=== PATIENT | female | born 1970 | race Caucasian/White ===

== ENCOUNTER → 2016-12-01 | Outpatient (CLI) | payer BC ==
[2016-12-01 16:47] LABS: CHLORIDE,CL 106 mmol/L (98-110); SODIUM,NA 139 mmol/L (136-146)
== END ==
LOC: MW.CHIM 15:29
PROVIDERS: ATTEND Internal Medicine
DX: R11.2 Nausea with vomiting, unspecified (principal); R19.7 Diarrhea, unspecified; N92.0 Excessive and frequent menstruation with regular cycle; R19.02 Left upper quadrant abdominal swelling, mass and lump
CPT/HCPCS: 36415; 80053; 82150; 84443; 85025; 85610; 85652; 86140

== ENCOUNTER → 2016-12-02 | Outpatient (CLI) | payer BC | LOC: MW.CHIM 08:23 | PROVIDERS: ATTEND Internal Medicine | DX: R11.2 Nausea with vomiting, unspecified (principal); R19.7 Diarrhea, unspecified; R19.02 Left upper quadrant abdominal swelling, mass and lump | CPT/HCPCS: 83630; 87046; 87324; 87328; 87329; 87338; 87899 ==

== ENCOUNTER → 2016-12-10 | Outpatient (CLI) | payer BC ==
--- NOTE | 2016-12-10 12:43 | US ---
EXAMINATION: Right upper quadrant ultrasound HISTORY: Nausea COMPARISON: None TECHNIQUE: Grayscale and color Doppler images obtained of the right upper quadrant. FINDINGS: The visualized pancreas appears normal. The liver is normal in contour with mildly increas ed generalized echotexture. No focal hepatic mass. Cholecystectomy. The common bile duct measures 3 to 4 mm. Right kidney measures 11.7 cm [id number] without evidence of hydronephrosis. No shadowing stones. IMPRESSION: 1. Minimal fatty infiltration of the liver.
--- NOTE | 2016-12-10 13:44 | US ---
EXAMINATION: Transvaginal and transabdominal pelvic ultrasound HISTORY: Excessive and frequent menstruation COMPARISON: None TECHNIQUE: Grayscale, color Doppler, and spectral Doppler images obtained transvaginally and transab dominally. FINDINGS: The uterus is normal in size and contour with a heterogeneous overall echotexture. Endomet rial stripe thickness is not well characterized. Small the both and cysts are noted. No significant free pelvic fluid. There is a small cyst 1 cm noted within the left adnexal region, however the adjacent overlying tiss ues not well characterized. The right ovary is noted transabdominally and appears normal in contour and echogenicity demonstrating normal color and spectral Doppler flow. IMPRESSION: 1. Heterogeneous uterine echotexture, possibly containing underlying fibroids. 2. A small left adnexal cyst is noted however the left ovary is not well characterized.
--- NOTE | 2016-12-22 14:06 | MY ---
EXAMINATION: Bilateral digital mammography utilizing CAD. HISTORY: Screening exam. Comparison is made to previous studies dated 01/29/2015, 01/19/2014. FINDINGS: Bilateral scattered fibroglandular densities. No suspicious calcifications, masses or ar chitectural distortions. No pathologic appearing lymph nodes, no abnormal skin thickening or nippl e inversion. CAD highlighted regions appear normal at this time. IMPRESSION: BI-RADS category I - negative mammogram. Continued screening according to ACR-ACS gu idelines suggested. THE FALSE-NEGATIVE RATE OF MAMMOGRAM IS APPROXIMATELY 10%. MANAGEMENT OF A PALPABLE ABNORMALITY MUST BE BASED UPON CLINICAL GROUNDS. SENSITIVITY FOR DETECTION OF ABNORMALITIES IN DENSE BREASTS IS LOW. NOTE: A letter will be sent to the patient regarding findings. [facility] -- MARIYA Chau [phone] - FAX [phone]
== END ==
LOC: MW.US 09:20
PROVIDERS: ATTEND Nurse Practitioner Women's Health
DX: Z12.31 Encounter for screening mammogram for malignant neoplasm of breast (principal); N92.0 Excessive and frequent menstruation with regular cycle; R11.2 Nausea with vomiting, unspecified; R19.7 Diarrhea, unspecified; E27.8 Other specified disorders of adrenal gland; K76.0 Fatty (change of) liver, not elsewhere classified
CPT/HCPCS: 76705; 76830; G0202

== ENCOUNTER 2020-09-05 10:31 | Day surgery (SDC) | payer BC ==
[~2020-09-05 10:31] MED LIST: Lactated Ringers 1,000 ML IV SCH; Lidocaine 2% 5 ML SDV ONE; Propofol 200 MG/20 ML SDV ONE; fentaNYL 100 MCG/2 ML SDV ONE
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
--- NOTE | 2020-09-05 13:12 | PCM.OPNOTE ---
- General Post-Op/Procedure Note Date of Surgery/Procedure: 09/05/20 Operative Procedure(s): Colonoscopy with polypectomy and random biopsies Findings: Colon polyp Dictation Number [id number] Pre Op Diagnosis: frequent loose stools Post-Op Diagnosis: colon polyp Primary Surgeon: Amanuel San Pathology: colon polyp and random biopsies. Complications: None Condition: Good
--- NOTE | 2020-09-05 13:14 | PCM.POSTAN ---
POST ANESTHESIA ASSESSMENT - MENTAL STATUS Mental Status: Alert, Oriented - VITAL SIGNS Vital Signs: Last Vital Signs Temp Pulse 81 09/05/20 10:45 Resp 15 09/05/20 10:45 BP 131/76 09/05/20 10:45 Pulse Ox 95 09/05/20 10:45 - RESPIRATORY Respiratory Status: Respiratory Rate WNL, Airway Patent, O2 Saturation Stable - CARDIOVASCULAR CV Status: Pulse Rate WNL, Blood Pressure Stable - GASTROINTESTINAL GI Status: No Symptoms - POST OP HYDRATION Hydration Status: Adequate & Stable
--- NOTE | 2020-09-05 13:23 | PCM48HPAN ---
Post Anesthesia Note - EVALUATION WITHIN 48HRS OF ANESTHETIC Vital Signs in Normal Range: Yes Patient Participated in Evaluation: Yes Respiratory Function Stable: Yes Airway Patent: Yes Cardiovascular Function Stable: Yes Hydration Status Stable: Yes Pain Control Satisfactory: Yes Nausea and Vomiting Control Satisfactory: Yes Mental Status Recovered: Yes Vital Signs: Last Vital Signs Temp Pulse 66 09/05/20 13:13 Resp 9 L 09/05/20 13:13 BP 131/76 09/05/20 13:13 Pulse Ox 95 09/05/20 13:13
--- NOTE | 2020-09-05 15:13 | PCM.POSTAN ---
POST ANESTHESIA ASSESSMENT - MENTAL STATUS Mental Status: Oriented - VITAL SIGNS Vital Signs: Last Vital Signs Temp 36.1 C 09/05/20 13:20 Pulse 67 09/05/20 13:20 Resp 14 09/05/20 13:20 BP 130/88 09/05/20 13:20 Pulse Ox 93 L 09/05/20 13:20 - RESPIRATORY Respiratory Status: Respiratory Rate WNL, Airway Patent, O2 Saturation Stable - CARDIOVASCULAR CV Status: Pulse Rate WNL, Blood Pressure Stable - GASTROINTESTINAL GI Status: No Symptoms - PAIN Pain Score: 0 (Block regressing.) - POST OP HYDRATION Hydration Status: Adequate & Stable (Doing well. No problems noted.)
--- NOTE | 2020-09-05 20:59 | OR ---
SURGEON: MARIZA POWERS MD DATE OF PROCEDURE: 09/05/2020 PREOPERATIVE DIAGNOSES: 1. Irritable bowel syndrome. 2. Intermittent loose stool with incontinence. POSTOPERATIVE DIAGNOSIS: Colon polyp at approximately 15 cm, small. PROCEDURES PERFORMED: 1. Colonoscopy. 2. Cold biopsy polypectomy. 3. Random colon biopsies. PRIMARY SURGEON: Mraiza Powers MD ANESTHESIA: With anesthesiologist. EXTENT OF COLONOSCOPY: To the cecum. BOWEL PREP: Excellent. LIMITATIONS: None. REASON FOR PROCEDURE: The patient is a pleasant 50-year-old female. She usually goes between constipation and loose stools, but the loose stools are occurring more frequently. Occasionally, she is even incontinent of stools because it comes so quickly. PROCEDURE IN DETAIL: Physical exam was performed. Major risks and benefits associated with the procedure were explained to the patient in detail. The patient verbalized understanding of the same. The patient was then connected to appropriate monitoring device and IV started. EKG, pulse, pulse oximetry, blood pressure, and capnography were monitored throughout the procedure. The patient's oxygen and sedation were provided by the anesthesiologist. The patient was placed in left lateral decubitus position and sedation was began. After adequate sedation was achieved, digital rectal exam was performed. No rectal masses or polyps were felt. Now, a well-lubricated Olympus colonoscope was entered into the rectum and advanced under direct visualization to the level of the cecum. Cecum was identified by both visual and anatomic landmarks. Photograph was taken of the cecal cap. The scope was then slowly withdrawn in somewhat circular fashion looking at the color, texture, anatomy, and integrity of the mucosa from the cecum to the anal canal. I did do some random biopsies throughout the colon because of her more frequent loose stools. I did random biopsies of the cecum, ascending colon, and transverse in one bottle and then in another container placed descending, sigmoid, and rectum. The patient did have one small polyp at about 15 cm in the sigmoid colon. This was removed in a piecemeal fashion with cold biopsy forceps. Appeared to have been completely removed. Had good hemostasis. The scope was retroflexed in the rectum. Scope was then completely removed and the procedure was terminated. ENDOSCOPIC DIAGNOSIS: Colon polyp at 15 cm, small. RECOMMENDATIONS: Followup colonoscopy will depend on pathology, but most likely will need another one in 5 years, sooner if she develops signs and symptoms such as change in bowel habits or blood in her stool. LEXX / FLORINA /[id number] VALENCIA
== END 2020-09-05 13:45 | disposition home or self-care (01) ==
LOC: MW.SDS 10:31
PROVIDERS: ATTEND Surgery
DX: K63.5 Polyp of colon (principal); K58.0 Irritable bowel syndrome with diarrhea; E11.9 Type 2 diabetes mellitus without complications; E78.00 Pure hypercholesterolemia, unspecified; E66.9 Obesity, unspecified; F17.210 Nicotine dependence, cigarettes, uncomplicated; Z79.899 Other long term (current) drug therapy; Z79.84 Long term (current) use of oral hypoglycemic drugs; Z98.890 Other specified postprocedural states; Z68.38 Body mass index [BMI] 38.0-38.9, adult
CPT/HCPCS: 45380; J2704; J3010; J7120; 00812; 88305

== ENCOUNTER 2021-06-09 07:46 | Inpatient (IN) | payer BC ==
[2021-06-09] MEDS ORDERED: Ondansetron 4 MG/2 ML SDV IVPUSH ONE (08:29)
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
[2021-06-09] MEDS ORDERED: cefTRIAXone 1 GM in Premix Bag 1 BAG IV ONE (09:31)
[2021-06-09] MEDS ORDERED: Azithromycin 500 MG in Sodium Chloride 0.9% 250 ML IV SCH (09:45)
--- NOTE | 2021-06-09 09:50 | CR ---
Indication: Chest pain Comparison: None available. Technique: Single AP view chest Findings: There is hyperinflation and chronic interstitial change. There is questionable airspace opacity within the peripheral right lung base which may represent developing atelectasis and/or infiltrates. The left hemithorax is clear. The cardiomediastinal silhouette is within normal limits. The bony thorax is grossly intact. Impression: Hyperinflation and chronic interstitial changes with questionable airspace opacities in the right lung base which may represent developing infiltrates. Dictated by Mike Pulido MD @ 06/09/2021 9:47:43 AM (Electronically Signed)
[2021-06-09 09:59] LABS: BLOOD UREA NITROGEN,BUN 10 mg/dL (7.0-18.0); CARBON DIOXIDE,CO2 27.8 mmol/L (21.0-32.0); CHLORIDE,CL 92 mmol/L (98-107); GLUCOSE RANDOM 134 mg/dL (74-106); LIPASE 190 U/L (73-393); POTASSIUM,K 3.2 mmol/L (3.5-5.1); SODIUM,NA 132 mmol/L (136-145)
[2021-06-09] MEDS ORDERED: Dexamethasone 4 MG/ML SDV IVPUSH ONE (13:30)
[2021-06-09] MEDS ORDERED: REMDESIVIR 200 MG in Sodium Chloride 0.9% 250 ML IV ONE (13:31)
[2021-06-09 14:57] LABS: BLOOD UREA NITROGEN,BUN 11 mg/dL (7.0-18.0); CARBON DIOXIDE,CO2 28.3 mmol/L (21.0-32.0); CHLORIDE,CL 95 mmol/L (98-107); GLUCOSE RANDOM 113 mg/dL (74-106); POTASSIUM,K 3.7 mmol/L (3.5-5.1); SODIUM,NA 133 mmol/L (136-145)
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
[2021-06-09] MEDS ORDERED: Albuterol/Ipratropium 3.0-0.5 MG/3 ML Neb Soln NEB PRN (15:56)
[2021-06-09] MEDS ORDERED: Acetaminophen 325 MG Tab PO PRN (15:56)
[2021-06-09] MEDS ORDERED: Ondansetron 4 MG/2 ML SDV IVPUSH PRN (15:56)
[2021-06-09] MEDS: Enoxaparin 40 MG/0.4 ML Syringe SUBCUT SCH (16:00)
[2021-06-10 07:32] LABS: BLOOD UREA NITROGEN,BUN 12 mg/dL (7.0-18.0); CARBON DIOXIDE,CO2 31.2 mmol/L (21.0-32.0); CHLORIDE,CL 97 mmol/L (98-107); GLUCOSE RANDOM 132 mg/dL (74-106); POTASSIUM,K 3.6 mmol/L (3.5-5.1); SODIUM,NA 136 mmol/L (136-145)
[2021-06-10] MEDS: Dexamethasone 4 MG Tab PO SCH (08:51)
[2021-06-10] MEDS: Levofloxacin/Dextrose 5%-Water 750 MG in Premix Bag 1 BAG IV SCH (09:52)
[2021-06-10] MEDS: Pantoprazole 40 MG Vial IV SCH (09:52)
[2021-06-10] MEDS ORDERED: ALPRAZolam 0.25 MG Tab PO PRN (14:00)
[2021-06-10] MEDS: atorvaSTATin 20 MG Tab PO SCH (14:14)
[2021-06-10] MEDS: Escitalopram 10 MG Tab PO SCH (14:14)
--- NOTE | 2021-06-10 14:21 | PCM.PN ---
- General Info Date of Service: 06/10/21 - Review of Systems Systems Review Comment:: reports shortness of breath, slightly better than yesterday - Patient Data Vitals - Most Recent: Last Vital Signs Temp 36.1 C 06/10/21 11:24 Pulse 72 06/10/21 11:24 Resp 14 06/10/21 11:24 BP 106/68 06/10/21 11:24 Pulse Ox 94 L 06/10/21 11:24 Weight - Most Recent: 82.962 kg I&O - Last 24 Hours: Intake & Output 06/09/21 06/10/21 06/10/21 22:59 06:59 14:59 Intake Total 1320 Output Total 1800 Balance -480 Lab Results Last 24 Hours: Laboratory Results - last 24 hr 06/09/21 06/09/21 06/09/21 Range/Units 14:10 17:06 21:55 WBC (4.0-11.0) K/uL RBC (4.30-5.90) M/uL Hgb (12.0-16.0) g/dL Hct (36.0-46.0) % MCV (80.0-98.0) fL MCH (27.0-32.0) pg MCHC (31.0-37.0) g/dL RDW Std Deviation (28.0-62.0) fl RDW Coeff of Vickie (11.0-15.0) % Plt Count (150-400) K/uL MPV (7.40-12.00) fL Neut % (Auto) (48.0-80.0) % Lymph % (Auto) (16.0-40.0) % [place] % (Auto) (0.0-15.0) % Eos % (Auto) (0.0-7.0) % Baso % (Auto) (0.0-1.5) % Neut # (Auto) (1.4-5.7) K/uL Lymph # (Auto) (0.6-2.4) K/uL [place] # (Auto) (0.0-0.8) K/uL Eos # (Auto) (0.0-0.7) K/uL Baso # (Auto) (0.0-0.1) K/uL Nucleated RBC % /100WBC Nucleated RBCs # K/uL Sodium 133 L (136-145) mmol/L Potassium 3.7 (3.5-5.1) mmol/L Chloride 95 L (98-107) mmol/L Carbon Dioxide 28.3 (21.0-32.0) mmol/L BUN 11 (7.0-18.0) mg/dL Creatinine 0.7 (0.6-1.0) mg/dL Est Cr Clr Drug Dosing 74.35 mL/min Estimated GFR (MDRD) > 60.0 ml/min Glucose 113 H (74-106) mg/dL POC Glucose 147 H (70-99) mg/dL Calcium 8.1 L (8.5-10.1) mg/dL Phosphorus (2.6-4.7) mg/dL Magnesium (1.8-2.4) mg/dL Total Bilirubin 0.7 (0.2-1.0) mg/dL Direct Bilirubin 0.20 (0.0-0.5) mg/dL AST 35 (15-37) IU/L ALT 35 (14-63) IU/L Alkaline Phosphatase 79 (46-116) U/L Total Protein 6.5 (6.4-8.2) g/dL Albumin 3.2 L (3.4-5.0) g/dL Globulin 3.3 (2.6-4.0) g/dL Albumin/Globulin Ratio 1.0 (0.9-1.6) Urine Color YELLOW Urine Appearance CLEAR Urine pH 6.0 (5.0-8.0) Ur Specific [place] 1.010 (1.001-1.035) Urine Protein NEGATIVE (NEGATIVE) mg/dL Urine Glucose (UA) NEGATIVE (NEGATIVE) mg/dL Urine Ketones NEGATIVE (NEGATIVE) mg/dL Urine Occult Blood TRACE-INTACT H (NEGATIVE) Urine Nitrite NEGATIVE (NEGATIVE) Urine Bilirubin NEGATIVE (NEGATIVE) Urine Urobilinogen 0.2 (<2.0) EU/dL Ur Leukocyte Esterase NEGATIVE (NEGATIVE) Urine RBC 0-1 (0-2/HPF) Urine WBC 0-1 (0-5/HPF) Ur Epithelial Cells RARE (NONE-FEW) Urine Bacteria RARE (NEGATIVE) 06/10/21 06/10/21 06/10/21 Range/Units 05:52 05:52 06:31 WBC 4.63 (4.0-11.0) K/uL RBC 4.65 (4.30-5.90) M/uL Hgb 13.5 (12.0-16.0) g/dL Hct 40.3 (36.0-46.0) % MCV 86.7 (80.0-98.0) fL MCH 29.0 (27.0-32.0) pg MCHC 33.5 (31.0-37.0) g/dL RDW Std Deviation 41.3 (28.0-62.0) fl RDW Coeff of Vickie 13 (11.0-15.0) % Plt Count 306 (150-400) K/uL MPV 9.40 (7.40-12.00) fL Neut % (Auto) 67.0 (48.0-80.0) % Lymph % (Auto) 22.0 (16.0-40.0) % [place] % (Auto) 10.8 (0.0-15.0) % Eos % (Auto) 0.0 (0.0-7.0) % Baso % (Auto) 0.2 (0.0-1.5) % Neut # (Auto) 3.1 (1.4-5.7) K/uL Lymph # (Auto) 1.0 (0.6-2.4) K/uL [place] # (Auto) 0.5 (0.0-0.8) K/uL Eos # (Auto) 0.0 (0.0-0.7) K/uL Baso # (Auto) 0.0 (0.0-0.1) K/uL Nucleated RBC % 0.0 /100WBC Nucleated RBCs # 0 K/uL Sodium 136 (136-145) mmol/L Potassium 3.6 (3.5-5.1) mmol/L Chloride 97 L (98-107) mmol/L Carbon Dioxide 31.2 (21.0-32.0) mmol/L BUN 12 (7.0-18.0) mg/dL Creatinine 0.8 (0.6-1.0) mg/dL Est Cr Clr Drug Dosing 65.06 mL/min Estimated GFR (MDRD) > 60.0 ml/min Glucose 132 H (74-106) mg/dL POC Glucose 131 H (70-99) mg/dL Calcium 8.7 (8.5-10.1) mg/dL Phosphorus 4.9 H (2.6-4.7) mg/dL Magnesium 2.4 (1.8-2.4) mg/dL Total Bilirubin 0.7 (0.2-1.0) mg/dL Direct Bilirubin (0.0-0.5) mg/dL AST 35 (15-37) IU/L ALT 42 (14-63) IU/L Alkaline Phosphatase 82 (46-116) U/L Total Protein 7.4 (6.4-8.2) g/dL Albumin 3.2 L (3.4-5.0) g/dL Globulin 4.2 H (2.6-4.0) g/dL Albumin/Globulin Ratio 0.8 L (0.9-1.6) Urine Color Urine Appearance Urine pH (5.0-8.0) Ur Specific [place] (1.001-1.035) Urine Protein (NEGATIVE) mg/dL Urine Glucose (UA) (NEGATIVE) mg/dL Urine Ketones (NEGATIVE) mg/dL Urine Occult Blood (NEGATIVE) Urine Nitrite (NEGATIVE) Urine Bilirubin (NEGATIVE) Urine Urobilinogen (<2.0) EU/dL Ur Leukocyte Esterase (NEGATIVE) Urine RBC (0-2/HPF) Urine WBC (0-5/HPF) Ur Epithelial Cells (NONE-FEW) Urine Bacteria (NEGATIVE) 06/10/21 Range/Units 11:22 WBC (4.0-11.0) K/uL RBC (4.30-5.90) M/uL Hgb (12.0-16.0) g/dL Hct (36.0-46.0) % MCV (80.0-98.0) fL MCH (27.0-32.0) pg MCHC (31.0-37.0) g/dL RDW Std Deviation (28.0-62.0) fl RDW Coeff of Vickie (11.0-15.0) % Plt Count (150-400) K/uL MPV (7.40-12.00) fL Neut % (Auto) (48.0-80.0) % Lymph % (Auto) (16.0-40.0) % [place] % (Auto) (0.0-15.0) % Eos % (Auto) (0.0-7.0) % Baso % (Auto) (0.0-1.5) % Neut # (Auto) (1.4-5.7) K/uL Lymph # (Auto) (0.6-2.4) K/uL [place] # (Auto) (0.0-0.8) K/uL Eos # (Auto) (0.0-0.7) K/uL Baso # (Auto) (0.0-0.1) K/uL Nucleated RBC % /100WBC Nucleated RBCs # K/uL Sodium (136-145) mmol/L Potassium (3.5-5.1) mmol/L Chloride (98-107) mmol/L Carbon Dioxide (21.0-32.0) mmol/L BUN (7.0-18.0) mg/dL Creatinine (0.6-1.0) mg/dL Est Cr Clr Drug Dosing mL/min Estimated GFR (MDRD) ml/min Glucose (74-106) mg/dL POC Glucose 119 H (70-99) mg/dL Calcium (8.5-10.1) mg/dL Phosphorus (2.6-4.7) mg/dL Magnesium (1.8-2.4) mg/dL Total Bilirubin (0.2-1.0) mg/dL Direct Bilirubin (0.0-0.5) mg/dL AST (15-37) IU/L ALT (14-63) IU/L Alkaline Phosphatase (46-116) U/L Total Protein (6.4-8.2) g/dL Albumin (3.4-5.0) g/dL Globulin (2.6-4.0) g/dL Albumin/Globulin Ratio (0.9-1.6) Urine Color Urine Appearance Urine pH (5.0-8.0) Ur Specific [place] (1.001-1.035) Urine Protein (NEGATIVE) mg/dL Urine Glucose (UA) (NEGATIVE) mg/dL Urine Ketones (NEGATIVE) mg/dL Urine Occult Blood (NEGATIVE) Urine Nitrite (NEGATIVE) Urine Bilirubin (NEGATIVE) Urine Urobilinogen (<2.0) EU/dL Ur Leukocyte Esterase (NEGATIVE) Urine RBC (0-2/HPF) Urine WBC (0-5/HPF) Ur Epithelial Cells (NONE-FEW) Urine Bacteria (NEGATIVE) [place]on Results Last 24 Hours: Microbiology 06/09/21 09:17 Aerobic Blood Culture - Preliminary Blood - Venous - Lab Draw NO GROWTH AFTER 1 DAY Anaerobic Blood Culture - Preliminary NO GROWTH AFTER 1 DAY 06/09/21 09:06 Aerobic Blood Culture - Preliminary Blood - Venous NO GROWTH AFTER 1 DAY Anaerobic Blood Culture - Preliminary NO GROWTH AFTER 1 DAY Med Orders - Current: Current Medications Acetaminophen (Acetaminophen 325 Mg Tab) 650 mg PO Q4H PRN PRN Reason: Pain (Mild 1-3)/fever Albuterol/Ipratropium (Albuterol/Ipratropium 3.0-0.5 Mg/3 Ml Neb Soln) 3 ml NEB Q4HRRT PRN PRN Reason: Shortness Of Breath/wheezing Alprazolam (Alprazolam 0.25 Mg Tab) 0.25 mg PO DAILY PRN PRN Reason: Anxiety Atorvastatin Calcium (Atorvastatin 20 Mg Tab) 20 mg PO DAILY [facility] Dexamethasone (Dexamethasone 4 Mg Tab) 6 mg PO DAILY [facility] Last Admin: 06/10/21 08:51 Dose: 6 mg Documented by: Enoxaparin Sodium (Enoxaparin 40 Mg/0.4 Ml Syringe) 40 mg SUBCUT Q24H [facility] Last Admin: 06/09/21 16:00 Dose: 40 mg Documented by: Escitalopram Oxalate (Escitalopram 10 Mg Tab) 20 mg PO DAILY [facility] Gabapentin (Gabapentin 300 Mg Cap) 300 mg PO BID [facility] Remdesivir 100 mg/ Sodium (Chloride) 100 mls @ 100 mls/hr IV Q24H [facility] Stop: 06/13/21 16:59 Levofloxacin/Dextrose 750 mg/ (Premix) 150 mls @ 100 mls/hr IV Q24H [facility] Last Admin: 06/10/21 09:52 Dose: 100 mls/hr Documented by: Ondansetron HCl (Ondansetron 4 Mg/2 Ml Sdv) 4 mg IVPUSH Q4H PRN PRN Reason: Nausea/Vomiting Last Admin: 06/10/21 10:27 Dose: 4 mg Documented by: Pantoprazole Sodium (Pantoprazole 40 Mg Vial) 40 mg IV DAILY [facility] Last Admin: 06/10/21 09:52 Dose: 40 mg Documented by: Discontinued Medications Dexamethasone (Dexamethasone 4 Mg/Ml Sdv) 6 mg IVPUSH ONETIME ONE Stop: 06/09/21 13:31 Last Admin: 06/09/21 13:41 Dose: 6 mg Documented by: Ceftriaxone Sodium/Dextrose 1 (gm/ Premix) 50 mls @ 100 mls/hr IV ONETIME ONE Stop: 06/09/21 10:00 Last Admin: 06/09/21 09:43 Dose: 100 mls/hr Documented by: Azithromycin 500 mg/ Sodium (Chloride) 250 mls @ 250 mls/hr IV ONETIME IVIS Last Admin: 06/09/21 10:33 Dose: 250 mls/hr Documented by: Remdesivir 200 mg/ Sodium (Chloride) 250 mls @ 250 mls/hr IV ONETIME ONE Stop: 06/09/21 13:32 Last Admin: 06/09/21 14:08 Dose: 250 mls/hr Documented by: Ondansetron HCl (Ondansetron 4 Mg/2 Ml Sdv) 4 mg IVPUSH ONETIME ONE Stop: 06/09/21 08:30 Last Admin: 06/09/21 08:46 Dose: 4 mg Documented by: - Exam General: Alert, Oriented Lungs: Normal Respiratory Effort, Rhonchi Cardiovascular: Regular Rate, Regular Rhythm GI/Abdominal Exam: Soft, Non-Tender, No Distention Extremities: Non-Tender, No Pedal Edema Skin: Warm, Dry, Intact Neurological: No New Focal Deficit - Patient Data Lab Results Last 24 hrs: Laboratory Results - last 24 hr 06/09/21 06/09/21 06/09/21 Range/Units 14:10 17:06 21:55 WBC (4.0-11.0) K/uL RBC (4.30-5.90) M/uL Hgb (12.0-16.0) g/dL Hct (36.0-46.0) % MCV (80.0-98.0) fL MCH (27.0-32.0) pg MCHC (31.0-37.0) g/dL RDW Std Deviation (28.0-62.0) fl RDW Coeff of Vickie (11.0-15.0) % Plt Count (150-400) K/uL MPV (7.40-12.00) fL Neut % (Auto) (48.0-80.0) % Lymph % (Auto) (16.0-40.0) % [place] % (Auto) (0.0-15.0) % Eos % (Auto) (0.0-7.0) % Baso % (Auto) (0.0-1.5) % Neut # (Auto) (1.4-5.7) K/uL Lymph # (Auto) (0.6-2.4) K/uL [place] # (Auto) (0.0-0.8) K/uL Eos # (Auto) (0.0-0.7) K/uL Baso # (Auto) (0.0-0.1) K/uL Nucleated RBC % /100WBC Nucleated RBCs # K/uL Sodium 133 L (136-145) mmol/L Potassium 3.7 (3.5-5.1) mmol/L Chloride 95 L (98-107) mmol/L Carbon Dioxide 28.3 (21.0-32.0) mmol/L BUN 11 (7.0-18.0) mg/dL Creatinine 0.7 (0.6-1.0) mg/dL Est Cr Clr Drug Dosing 74.35 mL/min Estimated GFR (MDRD) > 60.0 ml/min Glucose 113 H (74-106) mg/dL POC Glucose 147 H (70-99) mg/dL Calcium 8.1 L (8.5-10.1) mg/dL Phosphorus (2.6-4.7) mg/dL Magnesium (1.8-2.4) mg/dL Total Bilirubin 0.7 (0.2-1.0) mg/dL Direct Bilirubin 0.20 (0.0-0.5) mg/dL AST 35 (15-37) IU/L ALT 35 (14-63) IU/L Alkaline Phosphatase 79 (46-116) U/L Total Protein 6.5 (6.4-8.2) g/dL Albumin 3.2 L (3.4-5.0) g/dL Globulin 3.3 (2.6-4.0) g/dL Albumin/Globulin Ratio 1.0 (0.9-1.6) Urine Color YELLOW Urine Appearance CLEAR Urine pH 6.0 (5.0-8.0) Ur Specific [place] 1.010 (1.001-1.035) Urine Protein NEGATIVE (NEGATIVE) mg/dL Urine Glucose (UA) NEGATIVE (NEGATIVE) mg/dL Urine Ketones NEGATIVE (NEGATIVE) mg/dL Urine Occult Blood TRACE-INTACT H (NEGATIVE) Urine Nitrite NEGATIVE (NEGATIVE) Urine Bilirubin NEGATIVE (NEGATIVE) Urine Urobilinogen 0.2 (<2.0) EU/dL Ur Leukocyte Esterase NEGATIVE (NEGATIVE) Urine RBC 0-1 (0-2/HPF) Urine WBC 0-1 (0-5/HPF) Ur Epithelial Cells RARE (NONE-FEW) Urine Bacteria RARE (NEGATIVE) 06/10/21 06/10/21 06/10/21 Range/Units 05:52 05:52 06:31 WBC 4.63 (4.0-11.0) K/uL RBC 4.65 (4.30-5.90) M/uL Hgb 13.5 (12.0-16.0) g/dL Hct 40.3 (36.0-46.0) % MCV 86.7 (80.0-98.0) fL MCH 29.0 (27.0-32.0) pg MCHC 33.5 (31.0-37.0) g/dL RDW Std Deviation 41.3 (28.0-62.0) fl RDW Coeff of Vickie 13 (11.0-15.0) % Plt Count 306 (150-400) K/uL MPV 9.40 (7.40-12.00) fL Neut % (Auto) 67.0 (48.0-80.0) % Lymph % (Auto) 22.0 (16.0-40.0) % [place] % (Auto) 10.8 (0.0-15.0) % Eos % (Auto) 0.0 (0.0-7.0) % Baso % (Auto) 0.2 (0.0-1.5) % Neut # (Auto) 3.1 (1.4-5.7) K/uL Lymph # (Auto) 1.0 (0.6-2.4) K/uL [place] # (Auto) 0.5 (0.0-0.8) K/uL Eos # (Auto) 0.0 (0.0-0.7) K/uL Baso # (Auto) 0.0 (0.0-0.1) K/uL Nucleated RBC % 0.0 /100WBC Nucleated RBCs # 0 K/uL Sodium 136 (136-145) mmol/L Potassium 3.6 (3.5-5.1) mmol/L Chloride 97 L (98-107) mmol/L Carbon Dioxide 31.2 (21.0-32.0) mmol/L BUN 12 (7.0-18.0) mg/dL Creatinine 0.8 (0.6-1.0) mg/dL Est Cr Clr Drug Dosing 65.06 mL/min Estimated GFR (MDRD) > 60.0 ml/min Glucose 132 H (74-106) mg/dL POC Glucose 131 H (70-99) mg/dL Calcium 8.7 (8.5-10.1) mg/dL Phosphorus 4.9 H (2.6-4.7) mg/dL Magnesium 2.4 (1.8-2.4) mg/dL Total Bilirubin 0.7 (0.2-1.0) mg/dL Direct Bilirubin (0.0-0.5) mg/dL AST 35 (15-37) IU/L ALT 42 (14-63) IU/L Alkaline Phosphatase 82 (46-116) U/L Total Protein 7.4 (6.4-8.2) g/dL Albumin 3.2 L (3.4-5.0) g/dL Globulin 4.2 H (2.6-4.0) g/dL Albumin/Globulin Ratio 0.8 L (0.9-1.6) Urine Color Urine Appearance Urine pH (5.0-8.0) Ur Specific [place] (1.001-1.035) Urine Protein (NEGATIVE) mg/dL Urine Glucose (UA) (NEGATIVE) mg/dL Urine Ketones (NEGATIVE) mg/dL Urine Occult Blood (NEGATIVE) Urine Nitrite (NEGATIVE) Urine Bilirubin (NEGATIVE) Urine Urobilinogen (<2.0) EU/dL Ur Leukocyte Esterase (NEGATIVE) Urine RBC (0-2/HPF) Urine WBC (0-5/HPF) Ur Epithelial Cells (NONE-FEW) Urine Bacteria (NEGATIVE) 06/10/21 Range/Units 11:22 WBC (4.0-11.0) K/uL RBC (4.30-5.90) M/uL Hgb (12.0-16.0) g/dL Hct (36.0-46.0) % MCV (80.0-98.0) fL MCH (27.0-32.0) pg MCHC (31.0-37.0) g/dL RDW Std Deviation (28.0-62.0) fl RDW Coeff of Vickie (11.0-15.0) % Plt Count (150-400) K/uL MPV (7.40-12.00) fL Neut % (Auto) (48.0-80.0) % Lymph % (Auto) (16.0-40.0) % [place] % (Auto) (0.0-15.0) % Eos % (Auto) (0.0-7.0) % Baso % (Auto) (0.0-1.5) % Neut # (Auto) (1.4-5.7) K/uL Lymph # (Auto) (0.6-2.4) K/uL [place] # (Auto) (0.0-0.8) K/uL Eos # (Auto) (0.0-0.7) K/uL Baso # (Auto) (0.0-0.1) K/uL Nucleated RBC % /100WBC Nucleated RBCs # K/uL Sodium (136-145) mmol/L Potassium (3.5-5.1) mmol/L Chloride (98-107) mmol/L Carbon Dioxide (21.0-32.0) mmol/L BUN (7.0-18.0) mg/dL Creatinine (0.6-1.0) mg/dL Est Cr Clr Drug Dosing mL/min Estimated GFR (MDRD) ml/min Glucose (74-106) mg/dL POC Glucose 119 H (70-99) mg/dL Calcium (8.5-10.1) mg/dL Phosphorus (2.6-4.7) mg/dL Magnesium (1.8-2.4) mg/dL Total Bilirubin (0.2-1.0) mg/dL Direct Bilirubin (0.0-0.5) mg/dL AST (15-37) IU/L ALT (14-63) IU/L Alkaline Phosphatase (46-116) U/L Total Protein (6.4-8.2) g/dL Albumin (3.4-5.0) g/dL Globulin (2.6-4.0) g/dL Albumin/Globulin Ratio (0.9-1.6) Urine Color Urine Appearance Urine pH (5.0-8.0) Ur Specific [place] (1.001-1.035) Urine Protein (NEGATIVE) mg/dL Urine Glucose (UA) (NEGATIVE) mg/dL Urine Ketones (NEGATIVE) mg/dL Urine Occult Blood (NEGATIVE) Urine Nitrite (NEGATIVE) Urine Bilirubin (NEGATIVE) Urine Urobilinogen (<2.0) EU/dL Ur Leukocyte Esterase (NEGATIVE) Urine RBC (0-2/HPF) Urine WBC (0-5/HPF) Ur Epithelial Cells (NONE-FEW) Urine Bacteria (NEGATIVE) Result Diagrams: 06/10/21 05:52 06/10/21 05:52 [place]on Results Last 24 hrs: Microbiology 06/09/21 09:17 Aerobic Blood Culture - Preliminary Blood - Venous - Lab Draw NO GROWTH AFTER 1 DAY Anaerobic Blood Culture - Preliminary NO GROWTH AFTER 1 DAY 06/09/21 09:06 Aerobic Blood Culture - Preliminary Blood - Venous NO GROWTH AFTER 1 DAY Anaerobic Blood Culture - Preliminary NO GROWTH AFTER 1 DAY Sepsis Event Note - Evaluation Sepsis Screening Result: No Definite Risk - Focused Exam Vital Signs: Vital Signs Temp Pulse Resp BP Pulse Ox 06/10/21 11:24 36.1 C 72 14 106/68 94 L 06/10/21 08:30 36.2 C 81 18 106/68 92 L 06/10/21 03:11 36.1 C 72 16 108/60 91 L - Problem List & Annotations (1) COVID SNOMED Code(s): 029480340 Code(s): U07.1 - COVID-19 Status: Acute Current Visit: Yes (2) Hypoxia SNOMED Code(s): 183623675 Code(s): R09.02 - HYPOXEMIA Status: Acute Current Visit: Yes - Problem List Review Problem List Initiated/Reviewed/Updated: Yes - My Orders Last 24 Hours: My Active Orders 06/10/21 14:00 ALPRAZolam [Xanax] 0.25 mg PO DAILY PRN Escitalopram [Lexapro] 20 mg PO DAILY atorvaSTATin [Lipitor] 20 mg PO DAILY 06/10/21 21:00 Gabapentin [Neurontin] 300 mg PO BID 06/11/21 05:11 CBC WITH AUTO DIFF [HEME] AM COMPREHENSIVE METABOLIC PN,CMP [CHEM] AM 06/12/21 05:11 CBC WITH AUTO DIFF [HEME] AM COMPREHENSIVE METABOLIC PN,CMP [CHEM] AM 06/13/21 05:11 CBC WITH AUTO DIFF [HEME] AM COMPREHENSIVE METABOLIC PN,CMP [CHEM] AM 06/14/21 05:11 CBC WITH AUTO DIFF [HEME] AM COMPREHENSIVE METABOLIC PN,CMP [CHEM] AM - Plan Plan:: 51-year-old female admitted for acute hypoxic respiratory failure secondary to Covid pneumonia with possible superimposed bacterial pneumonia Hypoxia: Continue oxygen support via 1 L NC COVID: remdesivir, dexamethasone Pneumonia: Levaquin lovenox for DVT prophylaxis
[2021-06-10] MEDS: Enoxaparin 40 MG/0.4 ML Syringe SUBCUT SCH (16:31)
[2021-06-10] MEDS: REMDESIVIR 100 MG in Sodium Chloride 0.9% 100 ML IV SCH (16:31)
[2021-06-10] MEDS ORDERED: Glucagon,Human Recombinant 1 MG Vial IM PRN (18:52)
[2021-06-10] MEDS ORDERED: 50% Dextrose in Water 50 ML Syringe IVPUSH PRN (18:52)
[2021-06-10] MEDS: Insulin Aspart 100 Units/ML 3 ML Pen SUBCUT SCH (19:02)
[2021-06-10] MEDS: Gabapentin 300 MG Cap PO SCH (20:53)
[2021-06-11] MEDS: Insulin Aspart 100 Units/ML 3 ML Pen SUBCUT SCH ×3 (07:02→18:03)
[2021-06-11 07:37] LABS: BLOOD UREA NITROGEN,BUN 12 mg/dL (7.0-18.0); CARBON DIOXIDE,CO2 30.1 mmol/L (21.0-32.0); CHLORIDE,CL 99 mmol/L (98-107); GLUCOSE RANDOM 122 mg/dL (74-106); POTASSIUM,K 3.6 mmol/L (3.5-5.1); SODIUM,NA 138 mmol/L (136-145)
[2021-06-11] MEDS: Levofloxacin/Dextrose 5%-Water 750 MG in Premix Bag 1 BAG IV SCH (09:53)
[2021-06-11] MEDS: atorvaSTATin 20 MG Tab PO SCH (09:54)
[2021-06-11] MEDS: Gabapentin 300 MG Cap PO SCH ×2 (09:54→21:54)
[2021-06-11] MEDS: Dexamethasone 4 MG Tab PO SCH (09:54)
[2021-06-11] MEDS: Escitalopram 10 MG Tab PO SCH (09:54)
[2021-06-11] MEDS: Pantoprazole 40 MG Vial IV SCH (09:54)
--- NOTE | 2021-06-11 12:17 | PCM.PN ---
- General Info Date of Service: 06/11/21 - Patient Data Vitals - Most Recent: Last Vital Signs Temp 36.2 C 06/11/21 08:00 Pulse 73 06/11/21 08:00 Resp 16 06/11/21 08:00 BP 111/74 06/11/21 08:00 Pulse Ox 90 L 06/11/21 08:00 Weight - Most Recent: 82.962 kg I&O - Last 24 Hours: Intake & Output 06/10/21 06/11/21 06/11/21 22:59 06:59 14:59 Intake Total 1350 1200 Output Total 1000 Balance 350 1200 Lab Results Last 24 Hours: Laboratory Results - last 24 hr 06/10/21 06/11/21 06/11/21 Range/Units 17:09 06:13 06:30 WBC 5.39 (4.0-11.0) K/uL RBC 4.57 (4.30-5.90) M/uL Hgb 13.2 (12.0-16.0) g/dL Hct 39.6 (36.0-46.0) % MCV 86.7 (80.0-98.0) fL MCH 28.9 (27.0-32.0) pg MCHC 33.3 (31.0-37.0) g/dL RDW Std Deviation 41.1 (28.0-62.0) fl RDW Coeff of Vickie 13 (11.0-15.0) % Plt Count 368 (150-400) K/uL MPV 9.10 (7.40-12.00) fL Neut % (Auto) 68.4 (48.0-80.0) % Lymph % (Auto) 19.9 (16.0-40.0) % [place] % (Auto) 11.5 (0.0-15.0) % Eos % (Auto) 0.0 (0.0-7.0) % Baso % (Auto) 0.2 (0.0-1.5) % Neut # (Auto) 3.7 (1.4-5.7) K/uL Lymph # (Auto) 1.1 (0.6-2.4) K/uL [place] # (Auto) 0.6 (0.0-0.8) K/uL Eos # (Auto) 0.0 (0.0-0.7) K/uL Baso # (Auto) 0.0 (0.0-0.1) K/uL Nucleated RBC % 0.0 /100WBC Nucleated RBCs # 0 K/uL Sodium (136-145) mmol/L Potassium (3.5-5.1) mmol/L Chloride (98-107) mmol/L Carbon Dioxide (21.0-32.0) mmol/L BUN (7.0-18.0) mg/dL Creatinine (0.6-1.0) mg/dL Est Cr Clr Drug Dosing mL/min Estimated GFR (MDRD) ml/min Glucose (74-106) mg/dL POC Glucose 186 H 124 H (70-99) mg/dL Calcium (8.5-10.1) mg/dL Total Bilirubin (0.2-1.0) mg/dL AST (15-37) IU/L ALT (14-63) IU/L Alkaline Phosphatase (46-116) U/L Total Protein (6.4-8.2) g/dL Albumin (3.4-5.0) g/dL Globulin (2.6-4.0) g/dL Albumin/Globulin Ratio (0.9-1.6) 06/11/21 Range/Units 06:30 WBC (4.0-11.0) K/uL RBC (4.30-5.90) M/uL Hgb (12.0-16.0) g/dL Hct (36.0-46.0) % MCV (80.0-98.0) fL MCH (27.0-32.0) pg MCHC (31.0-37.0) g/dL RDW Std Deviation (28.0-62.0) fl RDW Coeff of Vickie (11.0-15.0) % Plt Count (150-400) K/uL MPV (7.40-12.00) fL Neut % (Auto) (48.0-80.0) % Lymph % (Auto) (16.0-40.0) % [place] % (Auto) (0.0-15.0) % Eos % (Auto) (0.0-7.0) % Baso % (Auto) (0.0-1.5) % Neut # (Auto) (1.4-5.7) K/uL Lymph # (Auto) (0.6-2.4) K/uL [place] # (Auto) (0.0-0.8) K/uL Eos # (Auto) (0.0-0.7) K/uL Baso # (Auto) (0.0-0.1) K/uL Nucleated RBC % /100WBC Nucleated RBCs # K/uL Sodium 138 (136-145) mmol/L Potassium 3.6 (3.5-5.1) mmol/L Chloride 99 (98-107) mmol/L Carbon Dioxide 30.1 (21.0-32.0) mmol/L BUN 12 (7.0-18.0) mg/dL Creatinine 0.7 (0.6-1.0) mg/dL Est Cr Clr Drug Dosing 74.35 mL/min Estimated GFR (MDRD) > 60.0 ml/min Glucose 122 H (74-106) mg/dL POC Glucose (70-99) mg/dL Calcium 8.8 (8.5-10.1) mg/dL Total Bilirubin 0.6 (0.2-1.0) mg/dL AST 29 (15-37) IU/L ALT 35 (14-63) IU/L Alkaline Phosphatase 73 (46-116) U/L Total Protein 7.0 (6.4-8.2) g/dL Albumin 3.0 L (3.4-5.0) g/dL Globulin 4.0 (2.6-4.0) g/dL Albumin/Globulin Ratio 0.8 L (0.9-1.6) [place]on Results Last 24 Hours: Microbiology 06/09/21 09:17 Aerobic Blood Culture - Preliminary Blood - Venous - Lab Draw NO GROWTH AFTER 2 DAYS Anaerobic Blood Culture - Preliminary NO GROWTH AFTER 2 DAYS 06/09/21 09:06 Aerobic Blood Culture - Preliminary Blood - Venous NO GROWTH AFTER 2 DAYS Anaerobic Blood Culture - Preliminary NO GROWTH AFTER 2 DAYS Med Orders - Current: Current Medications Acetaminophen (Acetaminophen 325 Mg Tab) 650 mg PO Q4H PRN PRN Reason: Pain (Mild 1-3)/fever Albuterol/Ipratropium (Albuterol/Ipratropium 3.0-0.5 Mg/3 Ml Neb Soln) 3 ml NEB Q4HRRT PRN PRN Reason: Shortness Of Breath/wheezing Alprazolam (Alprazolam 0.25 Mg Tab) 0.25 mg PO DAILY PRN PRN Reason: Anxiety Atorvastatin Calcium (Atorvastatin 20 Mg Tab) 20 mg PO DAILY [facility] Last Admin: 06/11/21 09:54 Dose: 20 mg Documented by: Dexamethasone (Dexamethasone 4 Mg Tab) 6 mg PO DAILY [facility] Last Admin: 06/11/21 09:54 Dose: 6 mg Documented by: Dextrose/Water (50% Dextrose In Water 50 Ml Syringe) 50 ml IVPUSH ASDIRECTED PRN PRN Reason: Hypoglycemia Enoxaparin Sodium (Enoxaparin 40 Mg/0.4 Ml Syringe) 40 mg SUBCUT Q24H [facility] Last Admin: 06/10/21 16:31 Dose: 40 mg Documented by: Escitalopram Oxalate (Escitalopram 10 Mg Tab) 20 mg PO DAILY [facility] Last Admin: 06/11/21 09:54 Dose: 20 mg Documented by: Gabapentin (Gabapentin 300 Mg Cap) 300 mg PO BID [facility] Last Admin: 06/11/21 09:54 Dose: 300 mg Documented by: Glucagon (Glucagon,Human Recombinant 1 Mg Vial) 1 mg IM ASDIRECTED PRN PRN Reason: Hypoglycemia Remdesivir 100 mg/ Sodium (Chloride) 100 mls @ 100 mls/hr IV Q24H [facility] Stop: 06/13/21 16:59 Last Admin: 06/10/21 16:31 Dose: 100 mls/hr Documented by: Levofloxacin/Dextrose 750 mg/ (Premix) 150 mls @ 100 mls/hr IV Q24H [facility] Last Admin: 06/11/21 09:53 Dose: 100 mls/hr Documented by: Insulin Aspart (Insulin Aspart 100 Units/Ml 3 Ml Pen) 0 unit SUBCUT TIDAC [facility]; Protocol Last Admin: 06/11/21 07:02 Dose: Not Given Documented by: Ondansetron HCl (Ondansetron 4 Mg/2 Ml Sdv) 4 mg IVPUSH Q4H PRN PRN Reason: Nausea/Vomiting Last Admin: 06/10/21 10:27 Dose: 4 mg Documented by: Pantoprazole Sodium (Pantoprazole 40 Mg Vial) 40 mg IV DAILY [facility] Last Admin: 06/11/21 09:54 Dose: 40 mg Documented by: Discontinued Medications Dexamethasone (Dexamethasone 4 Mg/Ml Sdv) 6 mg IVPUSH ONETIME ONE Stop: 06/09/21 13:31 Last Admin: 06/09/21 13:41 Dose: 6 mg Documented by: Ceftriaxone Sodium/Dextrose 1 (gm/ Premix) 50 mls @ 100 mls/hr IV ONETIME ONE Stop: 06/09/21 10:00 Last Admin: 06/09/21 09:43 Dose: 100 mls/hr Documented by: Azithromycin 500 mg/ Sodium (Chloride) 250 mls @ 250 mls/hr IV ONETIME [facility] Last Admin: 06/09/21 10:33 Dose: 250 mls/hr Documented by: Remdesivir 200 mg/ Sodium (Chloride) 250 mls @ 250 mls/hr IV ONETIME ONE Stop: 06/09/21 13:32 Last Admin: 06/09/21 14:08 Dose: 250 mls/hr Documented by: Ondansetron HCl (Ondansetron 4 Mg/2 Ml Sdv) 4 mg IVPUSH ONETIME ONE Stop: 06/09/21 08:30 Last Admin: 06/09/21 08:46 Dose: 4 mg Documented by: - Exam General: Alert, Oriented Neck: Supple Lungs: Clear to Auscultation, Normal Respiratory Effort Cardiovascular: Regular Rate, Regular Rhythm GI/Abdominal Exam: Normal Bowel Sounds, Soft, Non-Tender, No Distention Extremities: Non-Tender, No Pedal Edema Skin: Warm, Dry, Intact - Patient Data Lab Results Last 24 hrs: Laboratory Results - last 24 hr 06/10/21 06/11/21 06/11/21 Range/Units 17:09 06:13 06:30 WBC 5.39 (4.0-11.0) K/uL RBC 4.57 (4.30-5.90) M/uL Hgb 13.2 (12.0-16.0) g/dL Hct 39.6 (36.0-46.0) % MCV 86.7 (80.0-98.0) fL MCH 28.9 (27.0-32.0) pg MCHC 33.3 (31.0-37.0) g/dL RDW Std Deviation 41.1 (28.0-62.0) fl RDW Coeff of Vickie 13 (11.0-15.0) % Plt Count 368 (150-400) K/uL MPV 9.10 (7.40-12.00) fL Neut % (Auto) 68.4 (48.0-80.0) % Lymph % (Auto) 19.9 (16.0-40.0) % [place] % (Auto) 11.5 (0.0-15.0) % Eos % (Auto) 0.0 (0.0-7.0) % Baso % (Auto) 0.2 (0.0-1.5) % Neut # (Auto) 3.7 (1.4-5.7) K/uL Lymph # (Auto) 1.1 (0.6-2.4) K/uL [place] # (Auto) 0.6 (0.0-0.8) K/uL Eos # (Auto) 0.0 (0.0-0.7) K/uL Baso # (Auto) 0.0 (0.0-0.1) K/uL Nucleated RBC % 0.0 /100WBC Nucleated RBCs # 0 K/uL Sodium (136-145) mmol/L Potassium (3.5-5.1) mmol/L Chloride (98-107) mmol/L Carbon Dioxide (21.0-32.0) mmol/L BUN (7.0-18.0) mg/dL Creatinine (0.6-1.0) mg/dL Est Cr Clr Drug Dosing mL/min Estimated GFR (MDRD) ml/min Glucose (74-106) mg/dL POC Glucose 186 H 124 H (70-99) mg/dL Calcium (8.5-10.1) mg/dL Total Bilirubin (0.2-1.0) mg/dL AST (15-37) IU/L ALT (14-63) IU/L Alkaline Phosphatase (46-116) U/L Total Protein (6.4-8.2) g/dL Albumin (3.4-5.0) g/dL Globulin (2.6-4.0) g/dL Albumin/Globulin Ratio (0.9-1.6) 06/11/21 Range/Units 06:30 WBC (4.0-11.0) K/uL RBC (4.30-5.90) M/uL Hgb (12.0-16.0) g/dL Hct (36.0-46.0) % MCV (80.0-98.0) fL MCH (27.0-32.0) pg MCHC (31.0-37.0) g/dL RDW Std Deviation (28.0-62.0) fl RDW Coeff of Vickie (11.0-15.0) % Plt Count (150-400) K/uL MPV (7.40-12.00) fL Neut % (Auto) (48.0-80.0) % Lymph % (Auto) (16.0-40.0) % [place] % (Auto) (0.0-15.0) % Eos % (Auto) (0.0-7.0) % Baso % (Auto) (0.0-1.5) % Neut # (Auto) (1.4-5.7) K/uL Lymph # (Auto) (0.6-2.4) K/uL [place] # (Auto) (0.0-0.8) K/uL Eos # (Auto) (0.0-0.7) K/uL Baso # (Auto) (0.0-0.1) K/uL Nucleated RBC % /100WBC Nucleated RBCs # K/uL Sodium 138 (136-145) mmol/L Potassium 3.6 (3.5-5.1) mmol/L Chloride 99 (98-107) mmol/L Carbon Dioxide 30.1 (21.0-32.0) mmol/L BUN 12 (7.0-18.0) mg/dL Creatinine 0.7 (0.6-1.0) mg/dL Est Cr Clr Drug Dosing 74.35 mL/min Estimated GFR (MDRD) > 60.0 ml/min Glucose 122 H (74-106) mg/dL POC Glucose (70-99) mg/dL Calcium 8.8 (8.5-10.1) mg/dL Total Bilirubin 0.6 (0.2-1.0) mg/dL AST 29 (15-37) IU/L ALT 35 (14-63) IU/L Alkaline Phosphatase 73 (46-116) U/L Total Protein 7.0 (6.4-8.2) g/dL Albumin 3.0 L (3.4-5.0) g/dL Globulin 4.0 (2.6-4.0) g/dL Albumin/Globulin Ratio 0.8 L (0.9-1.6) Result Diagrams: 06/11/21 06:30 06/11/21 06:30 K[place]on Results Last 24 hrs: Microbiology 06/09/21 09:17 Aerobic Blood Culture - Preliminary Blood - Venous - Lab Draw NO GROWTH AFTER 2 DAYS Anaerobic Blood Culture - Preliminary NO GROWTH AFTER 2 DAYS 06/09/21 09:06 Aerobic Blood Culture - Preliminary Blood - Venous NO GROWTH AFTER 2 DAYS Anaerobic Blood Culture - Preliminary NO GROWTH AFTER 2 DAYS Sepsis Event Note - Evaluation Sepsis Screening Result: No Definite Risk - Focused Exam Vital Signs: Vital Signs Temp Pulse Resp BP Pulse Ox 06/11/21 08:00 36.2 C 73 16 111/74 90 L 06/11/21 04:00 36.1 C 62 16 107/63 93 L - Problem List & Annotations (1) COVID SNOMED Code(s): 379867446 Code(s): U07.1 - COVID-19 Status: Acute Current Visit: Yes (2) Hypoxia SNOMED Code(s): 158132905 Code(s): R09.02 - HYPOXEMIA Status: Acute Current Visit: Yes - Problem List Review Problem List Initiated/Reviewed/Updated: Yes - My Orders Last 24 Hours: My Active Orders 06/10/21 14:00 ALPRAZolam [Xanax] 0.25 mg PO DAILY PRN Escitalopram [Lexapro] 20 mg PO DAILY atorvaSTATin [Lipitor] 20 mg PO DAILY 06/10/21 18:52 Dextrose 50% in Water 50 ml IVPUSH ASDIRECTED PRN Glucagon,Human Recombinant [GlucaGen] 1 mg IM ASDIRECTED PRN 06/10/21 18:53 Insulin Aspart [NovoLOG] See Protocol SUBCUT TIDAC 06/10/21 21:00 Gabapentin [Neurontin] 300 mg PO BID 06/12/21 05:11 CBC WITH AUTO DIFF [HEME] AM COMPREHENSIVE METABOLIC PN,CMP [CHEM] AM 06/13/21 05:11 CBC WITH AUTO DIFF [HEME] AM COMPREHENSIVE METABOLIC PN,CMP [CHEM] AM 06/14/21 05:11 CBC WITH AUTO DIFF [HEME] AM COMPREHENSIVE METABOLIC PN,CMP [CHEM] AM - Plan Plan:: 51-year-old female admitted for acute hypoxic respiratory failure secondary to Covid pneumonia with possible superimposed bacterial pneumonia Hypoxia: Continue oxygen support via 0.5 L NC COVID: continue remdesivir, dexamethasone Pneumonia: Levaquin lovenox for DVT prophylaxis
[2021-06-11] MEDS: Enoxaparin 40 MG/0.4 ML Syringe SUBCUT SCH (16:10)
[2021-06-11] MEDS: REMDESIVIR 100 MG in Sodium Chloride 0.9% 100 ML IV SCH (16:10)
[2021-06-12] MEDS: Insulin Aspart 100 Units/ML 3 ML Pen SUBCUT SCH ×2 (06:56→13:28)
[2021-06-12 07:49] LABS: BLOOD UREA NITROGEN,BUN 16 mg/dL (7.0-18.0); CARBON DIOXIDE,CO2 26.7 mmol/L (21.0-32.0); CHLORIDE,CL 103 mmol/L (98-107); GLUCOSE RANDOM 123 mg/dL (74-106); POTASSIUM,K 4.1 mmol/L (3.5-5.1); SODIUM,NA 138 mmol/L (136-145)
[2021-06-12] MEDS: Dexamethasone 4 MG Tab PO SCH (08:51)
[2021-06-12] MEDS: Escitalopram 10 MG Tab PO SCH (08:51)
[2021-06-12] MEDS: Levofloxacin/Dextrose 5%-Water 750 MG in Premix Bag 1 BAG IV SCH ×2 (08:51→11:01)
[2021-06-12] MEDS: atorvaSTATin 20 MG Tab PO SCH (08:51)
[2021-06-12] MEDS: Pantoprazole 40 MG Vial IV SCH ×2 (08:51→11:01)
[2021-06-12] MEDS: Gabapentin 300 MG Cap PO SCH (08:51)
--- NOTE | 2021-06-12 11:06 | PCM.DCSUM1 ---
Discharge Summary - Discharge Data Discharge Date: 06/12/21 Discharge Disposition: Home, Self-Care 01 Condition: Fair - Referral to Home Health Primary Care Physician: Michael Fuentes MD - Discharge Diagnosis/Problem(s) (1) COVID SNOMED Code(s): 835836486 ICD Code: U07.1 - COVID-19 Status: Acute Current Visit: Yes (2) Hypoxia SNOMED Code(s): 138230049 ICD Code: R09.02 - HYPOXEMIA Status: Acute Current Visit: Yes - Patient Summary/Data Hospital Course: 51-year-old female with past medical history of diabetes, hyperlipidemia, depression, irritable bowel disease who presented with worsening shortness of breath. In the ER she was found to be saturating 86 on ambulation and 90% on rest on room air. Chest x-ray showed hyperinflation and chronic interstitial changes with questionable air space opacities in the right lung base which may represent developing infiltrates. Patient was admitted secondary to hypoxic respiratory failure due to COVID pneumonia and possible superimposed bacterial infection. She was treated with remdesivir, dexametasone, and Levaquin. She did have improvement in her symptoms and today is requesting discharge. She does desated with walking so she was discharged with home O2 2 L NC with exertion. She is to follow up with with Dr. Fuentes. - Patient Instructions Diet: Regular Diet as Tolerated Activity: As Tolerated - Discharge Plan Prescriptions/Med Rec: dexAMETHasone [Dexamethasone] 4 mg PO DAILY #3 tablet levoFLOXacin [Levaquin] 750 mg PO DAILY #3 tab Home Medications: Home Meds ALPRAZolam [Xanax] 0.25 mg PO DAILY PRN 09/02/20 [History] Escitalopram Oxalate 20 mg PO DAILY 09/02/20 [History] atorvaSTATin Calcium [Atorvastatin Calcium] 20 mg PO DAILY 09/02/20 [History] metFORMIN HCl [Metformin HCl ER] 1,000 mg PO DAILY 09/02/20 [History] Gabapentin [Neurontin] 300 mg PO BID 06/09/21 [History] Semaglutide [Ozempic] 1 mg SQ WEEKLY 06/09/21 [History] dexAMETHasone [Dexamethasone] 4 mg PO DAILY #3 tablet 06/12/21 [Rx] levoFLOXacin [Levaquin] 750 mg PO DAILY #3 tab 06/12/21 [Rx] Oxygen Therapy Mode: Nasal Cannula Oxygen Flow Rate (L/min): 2 (with exercise) Patient Handouts: Hypoxia, COVID-19 Frequently Asked Questions, COVID-19, COVID-19 Vaccine Information, COVID-19: How to Protect Yourself and Others - CDC, COVID-19: Quarantine vs. Isolation - [facility] (07/18/2020) Referrals: Michael Fuentes MD [Primary Care Provider] - 06/30/21 2:00 pm - Discharge Summary/Plan Comment DC Time >30 min.: No Total # of Minutes for Discharge Time: 15 - Patient Data Vitals - Most Recent: Last Vital Signs Temp 36.4 C 06/12/21 08:00 Pulse 79 06/12/21 08:00 Resp 20 06/12/21 08:00 BP 114/93 H 06/12/21 08:00 Pulse Ox 94 L 06/12/21 08:00 Weight - Most Recent: 82.962 kg I&O - Last 24 hours: Intake & Output 06/11/21 06/12/21 06/12/21 22:59 06:59 14:59 Intake Total 2000 1000 Output Total 0 1350 Balance 2000 -350 Lab Results - Last 24 hrs: Laboratory Results - last 24 hr 06/11/21 06/11/21 06/12/21 Range/Units 12:28 17:51 06:19 WBC 5.63 (4.0-11.0) K/uL RBC 4.21 L (4.30-5.90) M/uL Hgb 12.1 (12.0-16.0) g/dL Hct 36.5 (36.0-46.0) % MCV 86.7 (80.0-98.0) fL MCH 28.7 (27.0-32.0) pg MCHC 33.2 (31.0-37.0) g/dL RDW Std Deviation 41.5 (28.0-62.0) fl RDW Coeff of Vickie 13 (11.0-15.0) % Plt Count 369 (150-400) K/uL MPV 9.00 (7.40-12.00) fL Neut % (Auto) 64.1 (48.0-80.0) % Lymph % (Auto) 23.3 (16.0-40.0) % [place] % (Auto) 12.1 (0.0-15.0) % Eos % (Auto) 0.0 (0.0-7.0) % Baso % (Auto) 0.5 (0.0-1.5) % Neut # (Auto) 3.6 (1.4-5.7) K/uL Lymph # (Auto) 1.3 (0.6-2.4) K/uL [place] # (Auto) 0.7 (0.0-0.8) K/uL Eos # (Auto) 0.0 (0.0-0.7) K/uL Baso # (Auto) 0.0 (0.0-0.1) K/uL Nucleated RBC % 0.0 /100WBC Nucleated RBCs # 0 K/uL Sodium (136-145) mmol/L Potassium (3.5-5.1) mmol/L Chloride (98-107) mmol/L Carbon Dioxide (21.0-32.0) mmol/L BUN (7.0-18.0) mg/dL Creatinine (0.6-1.0) mg/dL Est Cr Clr Drug Dosing mL/min Estimated GFR (MDRD) ml/min Glucose (74-106) mg/dL POC Glucose 131 H 167 H (70-99) mg/dL Calcium (8.5-10.1) mg/dL Total Bilirubin (0.2-1.0) mg/dL AST (15-37) IU/L ALT (14-63) IU/L Alkaline Phosphatase (46-116) U/L Total Protein (6.4-8.2) g/dL Albumin (3.4-5.0) g/dL Globulin (2.6-4.0) g/dL Albumin/Globulin Ratio (0.9-1.6) 06/12/21 06/12/21 Range/Units 06:19 06:35 WBC (4.0-11.0) K/uL RBC (4.30-5.90) M/uL Hgb (12.0-16.0) g/dL Hct (36.0-46.0) % MCV (80.0-98.0) fL MCH (27.0-32.0) pg MCHC (31.0-37.0) g/dL RDW Std Deviation (28.0-62.0) fl RDW Coeff of Vickie (11.0-15.0) % Plt Count (150-400) K/uL MPV (7.40-12.00) fL Neut % (Auto) (48.0-80.0) % Lymph % (Auto) (16.0-40.0) % [place] % (Auto) (0.0-15.0) % Eos % (Auto) (0.0-7.0) % Baso % (Auto) (0.0-1.5) % Neut # (Auto) (1.4-5.7) K/uL Lymph # (Auto) (0.6-2.4) K/uL [place] # (Auto) (0.0-0.8) K/uL Eos # (Auto) (0.0-0.7) K/uL Baso # (Auto) (0.0-0.1) K/uL Nucleated RBC % /100WBC Nucleated RBCs # K/uL Sodium 138 (136-145) mmol/L Potassium 4.1 (3.5-5.1) mmol/L Chloride 103 (98-107) mmol/L Carbon Dioxide 26.7 (21.0-32.0) mmol/L BUN 16 (7.0-18.0) mg/dL Creatinine 0.6 (0.6-1.0) mg/dL Est Cr Clr Drug Dosing 86.75 mL/min Estimated GFR (MDRD) > 60.0 ml/min Glucose 123 H (74-106) mg/dL POC Glucose 102 H (70-99) mg/dL Calcium 7.8 L (8.5-10.1) mg/dL Total Bilirubin 0.4 (0.2-1.0) mg/dL AST 19 (15-37) IU/L ALT 27 (14-63) IU/L Alkaline Phosphatase 69 (46-116) U/L Total Protein 5.8 L (6.4-8.2) g/dL Albumin 2.7 L (3.4-5.0) g/dL Globulin 3.1 (2.6-4.0) g/dL Albumin/Globulin Ratio 0.9 (0.9-1.6) KRISTAL Results - Last 24 hrs: Microbiology 06/09/21 09:17 Aerobic Blood Culture - Preliminary Blood - Venous - Lab Draw NO GROWTH AFTER 3 DAYS Anaerobic Blood Culture - Preliminary NO GROWTH AFTER 3 DAYS 06/09/21 09:06 Aerobic Blood Culture - Preliminary Blood - Venous NO GROWTH AFTER 3 DAYS Anaerobic Blood Culture - Preliminary NO GROWTH AFTER 3 DAYS Med Orders - Current: Current Medications Acetaminophen (Acetaminophen 325 Mg Tab) 650 mg PO Q4H PRN PRN Reason: Pain (Mild 1-3)/fever Albuterol/Ipratropium (Albuterol/Ipratropium 3.0-0.5 Mg/3 Ml Neb Soln) 3 ml NEB Q4HRRT PRN PRN Reason: Shortness Of Breath/wheezing Alprazolam (Alprazolam 0.25 Mg Tab) 0.25 mg PO DAILY PRN PRN Reason: Anxiety Atorvastatin Calcium (Atorvastatin 20 Mg Tab) 20 mg PO DAILY [facility] Last Admin: 06/12/21 08:51 Dose: 20 mg Documented by: Dexamethasone (Dexamethasone 4 Mg Tab) 6 mg PO DAILY [facility] Last Admin: 06/12/21 08:51 Dose: 6 mg Documented by: Dextrose/Water (50% Dextrose In Water 50 Ml Syringe) 50 ml IVPUSH ASDIRECTED PRN PRN Reason: Hypoglycemia Enoxaparin Sodium (Enoxaparin 40 Mg/0.4 Ml Syringe) 40 mg SUBCUT Q24H [facility] Last Admin: 06/11/21 16:10 Dose: 40 mg Documented by: Escitalopram Oxalate (Escitalopram 10 Mg Tab) 20 mg PO DAILY [facility] Last Admin: 06/12/21 08:51 Dose: 20 mg Documented by: Gabapentin (Gabapentin 300 Mg Cap) 300 mg PO BID [facility] Last Admin: 06/12/21 08:51 Dose: 300 mg Documented by: Glucagon (Glucagon,Human Recombinant 1 Mg Vial) 1 mg IM ASDIRECTED PRN PRN Reason: Hypoglycemia Remdesivir 100 mg/ Sodium (Chloride) 100 mls @ 100 mls/hr IV Q24H [facility] Stop: 06/13/21 16:59 Last Admin: 06/11/21 16:10 Dose: 100 mls/hr Documented by: Levofloxacin/Dextrose 750 mg/ (Premix) 150 mls @ 100 mls/hr IV Q24H [facility] Last Infusion: 06/11/21 11:23 Dose: Infused Documented by: Insulin Aspart (Insulin Aspart 100 Units/Ml 3 Ml Pen) 0 unit SUBCUT TIDAC [facility]; Protocol Last Admin: 06/12/21 06:56 Dose: Not Given Documented by: Ondansetron HCl (Ondansetron 4 Mg/2 Ml Sdv) 4 mg IVPUSH Q4H PRN PRN Reason: Nausea/Vomiting Last Admin: 06/10/21 10:27 Dose: 4 mg Documented by: Pantoprazole Sodium (Pantoprazole 40 Mg Vial) 40 mg IV DAILY [facility] Last Admin: 06/11/21 09:54 Dose: 40 mg Documented by: Discontinued Medications Dexamethasone (Dexamethasone 4 Mg/Ml Sdv) 6 mg IVPUSH ONETIME ONE Stop: 06/09/21 13:31 Last Admin: 06/09/21 13:41 Dose: 6 mg Documented by: Ceftriaxone Sodium/Dextrose 1 (gm/ Premix) 50 mls @ 100 mls/hr IV ONETIME ONE Stop: 06/09/21 10:00 Last Admin: 06/09/21 09:43 Dose: 100 mls/hr Documented by: Azithromycin 500 mg/ Sodium (Chloride) 250 mls @ 250 mls/hr IV ONETIME [facility] Last Admin: 06/09/21 10:33 Dose: 250 mls/hr Documented by: Remdesivir 200 mg/ Sodium (Chloride) 250 mls @ 250 mls/hr IV ONETIME ONE Stop: 06/09/21 13:32 Last Admin: 06/09/21 14:08 Dose: 250 mls/hr Documented by: Ondansetron HCl (Ondansetron 4 Mg/2 Ml Sdv) 4 mg IVPUSH ONETIME ONE Stop: 06/09/21 08:30 Last Admin: 06/09/21 08:46 Dose: 4 mg Documented by:
== END 2021-06-12 13:30 | disposition home or self-care (01) | DRG 137 ==
LOC: MW.ED 07:46 → MW.MS 13:36
PROVIDERS: ADMIT Student in an Organized Health Care Education/Training Program; ATTEND Student in an Organized Health Care Education/Training Program
PROC: XW033E5 Introduction of Remdesivir Anti-infective into Peripheral Vein, Percutaneous Approach, New Technology Group 5 (ICD-10-PCS; principal; 2021-06-09)
PROC: 3E0333Z Introduction of Anti-inflammatory into Peripheral Vein, Percutaneous Approach (ICD-10-PCS; 2021-06-09)
PROC: 3E0DX3Z Introduction of Anti-inflammatory into Mouth and Pharynx, External Approach (ICD-10-PCS; 2021-06-10)
DX: U07.1 COVID-19 (principal); J12.82 Pneumonia due to coronavirus disease 2019; J15.9 Unspecified bacterial pneumonia; E78.5 Hyperlipidemia, unspecified; F32.9 Major depressive disorder, single episode, unspecified; E78.00 Pure hypercholesterolemia, unspecified; F41.9 Anxiety disorder, unspecified; F32.A Depression, unspecified; J96.01 Acute respiratory failure with hypoxia; Z79.84 Long term (current) use of oral hypoglycemic drugs; Z79.899 Other long term (current) drug therapy
CPT/HCPCS: 36415; 71045; 71045-26; 80053; 81001; 82248; 82947; 83605; 83690; 83735; 83880; 84100; 84484; 85025; 85730; 86140; 87040; 93005; 96365; 96367; 96375; 99285-25; A9270-GY; C9113; J0456; J0696; J1100; J1650; J1815-GY; J1956; J2405; J7050; J8540; U0002